=== PATIENT | male | born 1930 | race Caucasian/White ===

== ENCOUNTER 2016-11-27 09:18 | Outpatient (CLI) | payer MEDICARE | END 2016-11-27 09:19 | disposition home or self-care (01) | DX: E78.5 Hyperlipidemia, unspecified (principal); I25.10 Atherosclerotic heart disease of native coronary artery without angina pectoris ==

== ENCOUNTER 2017-04-17 09:56 | Outpatient (CLI) | payer MEDICARE ==
[2017-04-17 17:26] LABS: BASOPHILS % (AUTO) 0.7 %; EOSINOPHILS # (AUTO) 0.2 10^3/uL (0.0-0.7); EOSINOPHILS % (AUTO) 2.7 %; HCT - HEMATOCRIT 42.5 % (42.0-52.0); HGB - HEMOGLOBIN 14.2 g/dL (14.0-18.0); LYMPHOCYTES % (AUTO) 16.9 %; MEAN CORPUSCULAR HEMOGLOBIN 34.5 pg (27.0-31.0); MEAN CORPUSCULAR HGB CONC 33.5 g/dL (32.0-36.0); MEAN CORPUSCULAR VOLUME 102.8 fL (80.0-94.0); MEAN PLATELET VOLUME 8.5 fL (7.4-11.4); MONOCYTES # (AUTO) 0.7 10^3/uL (0.0-1.0); MONOCYTES % (AUTO) 11.5 %; NEUTROPHILS # (AUTO) 3.9 10^3/uL (1.5-6.6); NEUTROPHILS % (AUTO) 68.2 %; RED BLOOD COUNT 4.13 10^6/uL (4.70-6.10); RED CELL DISTRIBUTION WIDTH 12.7 % (12.0-15.0); UNCORRECTED WHITE BLOOD COUNT 5.7 x10^3/uL; WHITE BLOOD COUNT 5.7 x10^3/uL (4.8-10.8)
[2017-04-17 17:44] LABS: ALBUMIN/GLOBULIN RATIO 1.9 (1.0-2.2); BILIRUBIN,TOTAL 1.1 mg/dL (0.2-1.0); CALCIUM 9.4 mg/dL (8.5-10.3); CREATININE 1.5 mg/dL (0.6-1.2); POTASSIUM 4.3 mmol/L (3.5-5.0); TOTAL PROTEIN 6.1 g/dL (6.7-8.2)
== END 2017-04-17 09:57 | disposition home or self-care (01) ==
LOC: LAB.F 09:56
PROVIDERS: ATTEND Internal Medicine Cardiovascular Disease
DX: I47.2 Ventricular tachycardia (principal); R06.02 Shortness of breath
CPT/HCPCS: 36415; 80053; 85025

== ENCOUNTER 2017-05-26 10:20 | Outpatient (CLI) | payer MEDICARE ==
[2017-05-26 19:42] LABS: CHOL/HDL RATIO 2.9 (<5.0); CHOLESTEROL 157 mg/dL; HDL CHOLESTEROL 54 mg/dL; LDL CHOLESTEROL,DIRECT 81 mg/dL; LDL/HDL RATIO 1.5 (<3.6); TRIGLYCERIDES 109 mg/dL; VLDL CHOLESTEROL 22 mg/dL
== END 2017-05-26 10:21 | disposition home or self-care (01) ==
LOC: LAB.F 10:20
PROVIDERS: ATTEND Internal Medicine Cardiovascular Disease
DX: E78.5 Hyperlipidemia, unspecified (principal)
CPT/HCPCS: 36415; 80061; 82550; 84450; 84460

== ENCOUNTER 2017-06-23 14:34 | Outpatient (CLI) | payer MEDICARE ==
[2017-06-23 18:43] LABS: ALBUMIN/GLOBULIN RATIO 2.3 (1.0-2.2); BILIRUBIN,TOTAL 0.8 mg/dL (0.2-1.0); BUN - BLOOD UREA NITROGEN 37 mg/dL (6-20); CALCIUM 9.5 mg/dL (8.5-10.3); CARBON DIOXIDE - CO2 24 mmol/L (21-32); CHLORIDE 110 mmol/L (101-111); CHOL/HDL RATIO 3.4 (<5.0); CHOLESTEROL 162 mg/dL; CREATININE 1.6 mg/dL (0.6-1.2); GFR - MDRD 41 (>89); GLUCOSE 85 mg/dL (70-100); HDL CHOLESTEROL 48 mg/dL; LDL/HDL RATIO 1.6 (<3.6); POTASSIUM 4.5 mmol/L (3.5-5.0); SODIUM 142 mmol/L (135-145); TOTAL PROTEIN 6.3 g/dL (6.7-8.2); TRIGLYCERIDES 174 mg/dL; VLDL CHOLESTEROL 35 mg/dL
== END 2017-06-23 14:35 | disposition home or self-care (01) ==
LOC: LAB.F 14:34
PROVIDERS: ATTEND Internal Medicine
DX: E78.00 Pure hypercholesterolemia, unspecified (principal)
CPT/HCPCS: 36415; 80053; 80061

== ENCOUNTER 2017-12-17 08:00 | Outpatient (CLI) | payer MEDICARE ==
[2017-12-17 17:49] LABS: CALCIUM 9.4 mg/dL (8.5-10.3); CREATININE 1.7 mg/dL (0.6-1.2)
== END 2017-12-17 08:01 | disposition home or self-care (01) ==
LOC: LAB.F 08:00
PROVIDERS: ATTEND Family Medicine
DX: N39.0 Urinary tract infection, site not specified (principal); R19.00 Intra-abdominal and pelvic swelling, mass and lump, unspecified site
CPT/HCPCS: 36415; 80048; 87086

== ENCOUNTER 2017-12-17 11:00 | Outpatient (CLI) | payer MEDICARE | END 2017-12-17 11:01 | disposition home or self-care (01) | LOC: LAB.R 11:00 | PROVIDERS: ATTEND Family Medicine | DX: N39.0 Urinary tract infection, site not specified (principal) | CPT/HCPCS: 87086 ==

== ENCOUNTER 2017-12-21 10:01 | Outpatient (CLI) | payer MEDICARE ==
[2017-12-21] MEDS ORDERED: IOPAMIDOL-300 100 ML VIAL ONE (10:25)
[2017-12-21] MEDS ORDERED: IOPAMIDOL-300 50 ML VIAL ONE (10:25)
[2017-12-21] MEDS ORDERED: IOPAMIDOL-300 100 ML VIAL IVP ONE (11:52)
[2017-12-21] MEDS ORDERED: IOPAMIDOL-300 50 ML VIAL PO ONE (11:52)
--- NOTE | 2017-12-21 14:10 | CT Report ---
CT ABDOMEN AND PELVIS WITH CONTRAST: 12/21/2017 CLINICAL INDICATION: Abdominal mass. TECHNIQUE: Axial CT images of the abdomen and pelvis were obtained with 50 mL Isovue 300 intravenously as well as oral contrast. COMPARISON: No previous CT is available for comparison. FINDINGS: Limited evaluation of the lung bases demonstrates mild atelectasis and a moderate hiatal hernia. ABDOMEN: The kidneys demonstrate cortical cysts, measuring up to 6 cm in the lower pole of the left kidney. No hydronephrosis or nephrolithiasis is present. The liver, spleen, pancreas and adrenal glands are unremarkable. The gallbladder is not dilated. No bowel dilatation, free gas, or free fluid is present. No abdominal adenopathy is seen. PELVIS: The prostate is enlarged and heterogeneous. A Merida catheter terminates in the urinary bladder, which appears thick walled, likely due to decompressed state. Sigmoid diverticulosis is present, without CT evidence of diverticulitis. No pelvic adenopathy or free fluid is present. Osseous structures demonstrate degenerative changes. IMPRESSION: 1. MODERATE HIATAL HERNIA. 2. ENLARGED PROSTATE, WITH A MERIDA CATHETER IN PLACE. 3. INCIDENTAL RENAL CYSTS. CT DOSE REDUCTION STATEMENT In accordance with CT protocol optimization, one or more of the following dose reduction techniques were utilized for this exam: automated exposure control, adjustment of mA and/or KV based on patient size, or use of iterative reconstructive technique. TD: 12/21/2017 14:09
== END 2017-12-21 10:02 | disposition home or self-care (01) ==
LOC: DI 10:01
PROVIDERS: ATTEND Family Medicine
DX: R19.00 Intra-abdominal and pelvic swelling, mass and lump, unspecified site (principal); K44.9 Diaphragmatic hernia without obstruction or gangrene; N40.0 Benign prostatic hyperplasia without lower urinary tract symptoms
CPT/HCPCS: 74177; Q9967

== ENCOUNTER 2018-02-08 14:34 | Outpatient (CLI) | payer MEDICARE ==
--- NOTE | 2018-02-08 15:15 | XRAY Report ---
TWO VIEW CHEST: 02/08/2018 CLINICAL INDICATION: Cough. COMPARISON: 08/09/2014. FINDINGS: Frontal and lateral views of the chest demonstrate a normal cardiac silhouette. Left subclavian pacemaker is stable. The lungs are hyperinflated, compatible with COPD. No focal consolidation, effusion, or pneumothorax is present. Moderate hiatal hernia, stable. IMPRESSION: COPD, BUT NO EVIDENCE OF ACUTE CARDIOPULMONARY DISEASE. TD: 02/08/2018 15:14
== END 2018-02-08 14:35 | disposition home or self-care (01) ==
LOC: DI.S 14:34
PROVIDERS: ATTEND Internal Medicine
DX: J44.9 Chronic obstructive pulmonary disease, unspecified (principal)
CPT/HCPCS: 71046

== ENCOUNTER 2018-02-16 07:07 | Outpatient (CLI) | payer MEDICARE | END 2018-02-16 07:08 | disposition home or self-care (01) | LOC: DI 07:07 | PROVIDERS: ATTEND Family Medicine | DX: I35.0 Nonrheumatic aortic (valve) stenosis (principal); I48.0 Paroxysmal atrial fibrillation; I10 Essential (primary) hypertension | CPT/HCPCS: 93306 ==

== ENCOUNTER 2018-05-21 11:01 | Outpatient (CLI) | payer MEDICARE ==
[2018-05-21 17:37] LABS: CALCIUM 9.2 mg/dL (8.5-10.3); CREATININE 1.4 mg/dL (0.6-1.2)
== END 2018-05-21 11:02 | disposition home or self-care (01) ==
LOC: LAB.F 11:01
PROVIDERS: ATTEND Internal Medicine Cardiovascular Disease
DX: I48.0 Paroxysmal atrial fibrillation (principal)
CPT/HCPCS: 36415; 80048

== ENCOUNTER 2018-10-13 16:45 | Outpatient (CLI) | payer MEDICARE | END 2018-10-13 16:46 | disposition critical access hospital (66) | LOC: EMS 16:45 | PROVIDERS: ATTEND Surgery | DX: R07.9 Chest pain, unspecified (principal); R22.1 Localized swelling, mass and lump, neck | CPT/HCPCS: A0425; A0429 ==

== ENCOUNTER 2018-10-13 17:17 | Emergency (ER) | payer MEDICARE ==
[2018-10-13 19:23] LABS: BASOPHILS % (AUTO) 0.2 %; EOSINOPHILS % (AUTO) 0.3 %; HGB - HEMOGLOBIN 13.9 g/dL (14.0-18.0); LYMPHOCYTES # (AUTO) 0.7 10^3/uL (1.5-3.5); LYMPHOCYTES % (AUTO) 7.3 %; MEAN CORPUSCULAR HEMOGLOBIN 36.2 pg (27.0-31.0); MEAN CORPUSCULAR HGB CONC 34.7 g/dL (32.0-36.0); MEAN CORPUSCULAR VOLUME 104.2 fL (80.0-94.0); MEAN PLATELET VOLUME 7.3 fL (7.4-11.4); MONOCYTES # (AUTO) 1.1 10^3/uL (0.0-1.0); MONOCYTES % (AUTO) 11.3 %; NEUTROPHILS # (AUTO) 7.7 10^3/uL (1.5-6.6); NEUTROPHILS % (AUTO) 80.9 %; PLT - PLATELET COUNT 179 10^3/uL (130-450); RED BLOOD COUNT 3.84 10^6/uL (4.70-6.10); WHITE BLOOD COUNT 9.5 x10^3/uL (4.8-10.8)
[2018-10-13 19:35] LABS: ALBUMIN/GLOBULIN RATIO 1.7 (1.0-2.2); BILIRUBIN,TOTAL 1.4 mg/dL (0.2-1.0); CALCIUM 8.7 mg/dL (8.5-10.3); CREATININE 1.3 mg/dL (0.6-1.2); TOTAL PROTEIN 6.3 g/dL (6.7-8.2)
--- NOTE | 2018-10-13 19:43 | XRAY Report ---
Reason: c/o chest pain Procedure Date: 10/13/2018 Accession Number: [id number] / [id number] Procedure: XR - Chest 1 View X-Ray CPT Code: 24002 FULL RESULT: EXAM: CHEST RADIOGRAPHY EXAM DATE: 10/13/2018 07:26 PM. CLINICAL HISTORY: C/o chest pain. COMPARISON: CHEST 1 VIEW 08/09/2014 1:48 PM. TECHNIQUE: 1 view. FINDINGS: Lungs/Pleura: No focal opacities evident. No pleural effusion. No pneumothorax. Mediastinum: The heart size is normal. There is a moderate sized hiatal hernia. Pacemaker leads overlie the right atrium and right ventricle. There is moderate calcification of the aortic arch. Other: None. IMPRESSION: 1. No acute cardiopulmonary abnormality. RADIA
[2018-10-13] MEDS: SODIUM CHLORIDE 0.9% 1,000 ML IV ONE (20:29)
--- NOTE | 2018-10-13 20:29 | ED Physician Documentation ---
PD HPI CHEST PAIN - Stated complaint Stated Complaint: CP - Chief complaint Chief Complaint: Cardiac - History obtained from History obtained from: Patient - History of Present Illness Timing - onset: Today Timing - onset during: Rest Timing - duration: Minutes Timing - details: Abrupt onset, Now resolved Quality: Pressure Location: Substernal Radiation: Neck Improved by: Nitro Associated symptoms: No: Shortness of air, Diaphoresis, Nausea, Vomiting, Feeling faint / dizzy, General Weakness, Palpitations, Cough Similar symptoms before: Diagnosis (angina) Recently seen: Not recently seen - Additional information Additional information: Is a well 88-year-old male with history of atrial fibrillation who has a pacemaker in place has history of aortic stenosis and today he was sitting on his couch when he developed substernal chest pressure. He felt this was something to do with his heart and he took a nitroglycerin and it improved. He felt that he should come in to be checked out. He has not had symptoms similar to this recently. He does indicate today that he has some tender area on the back of his neck and a lump that he is able to feel in his neck. He is currently symptom-free and relates that he was not sick prior to this. 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 Review of Systems Constitutional: denies: Fever Eyes: denies: Decreased vision Ears: denies: Ear pain Nose: denies: Rhinorrhea / runny nose, Congestion Throat: denies: Sore throat Cardiac: reports: Chest pain / pressure. denies: Palpitations, Pedal edema, Calf pain Respiratory: denies: Dyspnea, Cough, Wheezing GI: denies: Abdominal Pain, Nausea, Vomiting : denies: Dysuria, Frequency Skin: reports: Rash Musculoskeletal: reports: Neck pain (firm tender lump in neck.). denies: Back pain, Extremity pain Psychiatric: reports: Depressed, Insomnia PD PAST MEDICAL HISTORY - Past Medical History Past Medical History: Yes Cardiovascular: Hypertension, Atrial fibrillation, Murmur Respiratory: None Endocrine/Autoimmune: None GI: None, Other : None HEENT: None Psych: None Musculoskeletal: None Derm: None - Past Surgical History Past Surgical History: Yes Cardiovascular: Pacemaker HEENT: Tonsil/Adenoidectomy - Present Medications Home Medications: Ambulatory Orders Medication Instructions Recorded Confirmed Metoprolol Succinate 100 mg PO DAILY 08/09/14 08/09/14 Rivaroxaban [Xarelto] 20 mg PO DAILY 08/09/14 08/09/14 Finasteride [Proscar] 5 mg PO DAILY 04/03/16 04/03/16 Levetiracetam [Keppra] 500 mg PO BID 04/03/16 04/03/16 Lisinopril 10 mg PO DAILY 04/03/16 04/03/16 Tamsulosin [Flomax] 0.4 mg PO DAILY 04/03/16 04/03/16 Nitroglycerin 0.4 mg SL ONCE PRN #40 tab.subl 10/13/18 Valacyclovir HCl [Valacyclovir] 1,000 mg PO TID #21 tablet 10/13/18 - Allergies Allergies/Adverse Reactions: Allergies Allergy/AdvReac Type Severity Reaction Status Date / Time No Known Drug Allergies Allergy Verified 08/09/14 12:54 - Social History Does the pt smoke?: No Smoking Status: Never smoker Does the pt drink ETOH?: Yes Does the pt have substance abuse?: No - Immunizations Immunizations are current?: Yes - POLST Patient has POLST: No PD ED PE NORMAL - Vitals Vital signs reviewed: Yes (hypertensive ) - General General: Alert and oriented X 3, No acute distress, Well developed/nourished - HEENT HEENT: Atraumatic, PERRL, EOMI - Neck Neck: Supple, no meningeal sign, No bony TTP, Other (There is a firm palpable tender lymph node in the left posterior cervical chain. The scalp on the right side is erythematous and exquistly tender, like shingles but without vesiculation. ) - Cardiac Cardiac: RRR, Other (1/6 holosystolic murmer at LSB high pitched like aortic stenosis. 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, No motor deficit, No sensory deficit, Normal speech Eye Opening: Spontaneous Motor: Obeys Commands Verbal: Oriented GCS Score: 15 - Psych Psych: Normal mood, Normal affect Results - Vitals Vitals: Vital Signs - 24 hr 10/13/18 10/13/18 17:23 19:18 Temperature 98.6 C H Heart Rate 75 86 Respiratory 14 20 Rate Blood Pressure 153/77 H 158/84 H O2 Saturation 96 18 L Oxygen O2 Source Room air - Labs Labs: Laboratory Tests 10/13/18 10/13/18 10/13/18 19:15 19:15 19:15 WBC 9.5 RBC 3.84 L Hgb 13.9 L Hct 40.0 L MCV 104.2 H MCH 36.2 H MCHC 34.7 RDW 13.0 Plt Count 179 MPV 7.3 L Neut # (Auto) 7.7 H Lymph # (Auto) 0.7 L Frontier # (Auto) 1.1 H Eos # (Auto) 0.0 Baso # (Auto) 0.0 Absolute Nucleated RBC 0.00 Nucleated RBC % 0.0 Sodium 138 Potassium 4.2 Chloride 105 Carbon Dioxide 25 Anion Gap 8.0 BUN 22 H Creatinine 1.3 H Estimated GFR (MDRD) 52 L Glucose 106 H Calcium 8.7 Total Bilirubin 1.4 H AST 24 ALT 21 Alkaline Phosphatase 69 Troponin I < 0.04 Total Protein 6.3 L Albumin 4.0 Globulin 2.3 Albumin/Globulin Ratio 1.7 Lipase 33 - Rads (name of study) 1 view chest Radiology: Prelim report reviewed (Impression: 1. No acute cardiopulmonary abnormality.), EMP read indepedently, See rad report Procedures - IVC sono (time) 2019 Bedside IVC sono: IVC measures (cm) (unable to measure vessle) PD MEDICAL DECISION MAKING - ED course Complexity details: reviewed old records, reviewed results, re-evaluated patient, considered differential, d/w patient ED course: 88-year-old male with a history of atrial fibrillation and hypertension has developed acute chest pain this afternoon while at rest. He had a single episode relieved with use of nitroglycerin. Here in the emerge department on on examination he is found to be dehydrated. He is particularly clear appearing chest x-ray mild elevation in his BUN and concentrated urine.In addition he appears to have a rash on his right scalp consistent with the possibility of shingles. He has a solitary tender lymph node there as well. He does have a history of depression and near an anniversary of the of his dear customer success advocate. He does indicate that he drinks coffee and has 1-2 martinis at night. He recognizes that he does not drink adequate fluids. Here in the emergency department is administered normal saline 1 L wide open and valacyclovir 1000 mg p.o. I suspect his chest pain is related to fornical organ reflex resulting in hypertension with simultaneously being compromised by volume depletion with aortic stenosis. Departure - Departure Disposition: Home, Self Care Clinical Impression: Dehydration, Angina pectoris Shingles Qualifiers: Herpes zoster complications: without complications Qualified Code(s): B02.9 - Zoster without complications Condition: Stable Instructions: ED Chest Pain Angina Stable, ED Dehydration, ED Shingles Follow-Up: Blue Trujillo MD [Primary Care Provider] - Prescriptions: Nitroglycerin 0.4 mg SL ONCE PRN #40 tab.subl PRN Reason: Chest Pain Valacyclovir HCl [Valacyclovir] 1,000 mg PO TID #21 tablet
[2018-10-13] MEDS: valACYclovir 500 MG TABLET PO STA (20:30)
[2018-10-13 21:09] VITALS: BP 148/79
== END 2018-10-13 21:16 | disposition home or self-care (01) ==
LOC: EDUNIT# → ED 17:17
DX: E86.0 Dehydration (principal); I20.9 Angina pectoris, unspecified; B02.9 Zoster without complications; I44.0 Atrioventricular block, first degree; I48.91 Unspecified atrial fibrillation; I10 Essential (primary) hypertension; Z95.0 Presence of cardiac pacemaker; Z79.01 Long term (current) use of anticoagulants
CPT/HCPCS: 36415; 71045; 80053; 83690; 84484; 85025; 93005; 96374; 99284